=== PATIENT | male | born 1995 | race Caucasian/White ===

== ENCOUNTER 2020-10-09 14:13 | Emergency (ER) | payer SELFPAY ==
[~2020-10-09] VITALS: Ht 188 cm; Wt 68.0 kg
[2020-10-09 15:45] VITALS: BP 124/65
[2020-10-09] MEDS ORDERED: TETANUS-DIPTH-ACEL PERTUSSIS 0.5ML SYR Tdap IM ONE (16:00)
== END 2020-10-09 16:22 | disposition home or self-care (01) ==
LOC: ER 14:13
DX: S61.211A Laceration without foreign body of left index finger without damage to nail, initial encounter (principal); W22.8XXA Striking against or struck by other objects, initial encounter; Y93.89 Activity, other specified; Y92.89 Other specified places as the place of occurrence of the external cause; Y99.8 Other external cause status
CPT/HCPCS: 12001; 90471; 90715